=== PATIENT | male | born 1940 | race Caucasian/White ===

== ENCOUNTER 2020-09-30 09:54 | Observation (INO) ==
[2020-09-30 10:56] LABS: Basophils % 0.4 % (0.0-0.8); Eosinophils % 0.6 % (0.00-10.9); Hematocrit 23.2 VOL% (42.0-52.0); Hemoglobin 7.3 GM/DL (14.0-18.0); Immature Granulocytes Absolute 0.05 #; Lymphocytes # 0.9 10*3/uL (1.4-4.0); Lymphocytes % 18.2 % (21.2-54.2); Mean Corpuscular HGB Conc 31.5 GM/DL (32-36); Mean Corpuscular Volume 95.5 FL (87-102); Mean Platelet Volume 10.2 FL (9.6-12.0); Monocytes % 6.6 % (1.7-12.7); Neutrophils % 73.2 % (38.7-73.9); Platelet Count 224 T/CUMM (130-400); Red Blood Count 2.43 MC/CUMM (3.8-5.5); Red Cell Distribution Width 15.8 % (9.3-17.3)
[2020-09-30 11:31] LABS: Bilirubin,Total 0.4 MG/DL (0.2-1.0); Calcium 7.2 MG/DL (8.5-10.1); Osmolality,Calculated 300.5 MOS/KG (273-304); Potassium 5.3 MMOL/L (3.5-5.1); Total Protein 6.6 G/DL (6.4-8.3)
[2020-09-30] MEDS ORDERED: ONDANSETRON 4 MG/2 ML VIAL IV PRN (13:04)
[2020-09-30] MEDS ORDERED: DEXTROSE 50% 25 GM/50 ML VIAL IV PRN (13:04)
[2020-09-30] MEDS ORDERED: GLUCAGON 1 MG VIAL IM PRN (13:04)
[2020-09-30] MEDS ORDERED: LEVOFLOXACIN INJ 750 MG in PREMIX 1 EACH IV ONE ×2 (14:00→20:00)
[2020-09-30] MEDS: DEXAMETHASONE 4 MG/1 ML VIAL IV SCH (14:50)
[2020-09-30 17:55] LABS: Hepatitis B Core IgM Quant 0.07 Index; Hepatitis B Surface Ag Quant < 0.10 Index; Hepatitis B Surface Ag Result Negative (Negative); Hepatitis C Virus Ab Quant 0.04 Index; Hepatitis C Virus Ab Result Negative (Negative)
[2020-09-30] MEDS: ACETAMINOPHEN 325 MG TABLET PO PRN (21:08)
[2020-09-30] MEDS: HEPARIN 5,000 UNIT/1 ML VIAL SUBCUT SCH (21:08)
[2020-10-01 05:47] LABS: Albumin 2.5 G/DL (3.4-5.0); Bilirubin,Total 0.7 MG/DL (0.2-1.0); Ferritin 115.3 ng/ml (26-388); Potassium 4.1 MMOL/L (3.5-5.1); Total Protein 5.9 G/DL (6.4-8.3)
[2020-10-01 06:23] LABS: Hematocrit 25.1 VOL% (42.0-52.0); Hemoglobin 7.9 GM/DL (14.0-18.0); Immature Granulocytes % 0.7 %; Immature Granulocytes Absolute 0.03 #; Lymphocytes # 0.6 10*3/uL (1.4-4.0); Lymphocytes % 12.9 % (21.2-54.2); Mean Corpuscular HGB Conc 31.5 GM/DL (32-36); Mean Corpuscular Volume 95.1 FL (87-102); Monocytes % 5.2 % (1.7-12.7); Neutrophils % 81.2 % (38.7-73.9); Platelet Count 215 T/CUMM (130-400); Red Blood Count 2.64 MC/CUMM (3.8-5.5); Red Cell Distribution Width 15.1 % (9.3-17.3); White Blood Count 4.3 T/CUMM (4-12)
[2020-10-01] MEDS: DEXAMETHASONE 4 MG/1 ML VIAL IV SCH (08:15)
[2020-10-01] MEDS: HEPARIN 5,000 UNIT/1 ML VIAL SUBCUT SCH ×2 (08:15→20:53)
[2020-10-01 09:30] LABS: Albumin 2.7 G/DL (3.4-5.0); Bilirubin,Total 0.8 MG/DL (0.2-1.0); Osmolality,Calculated 284.8 MOS/KG (273-304); Total Protein 7.2 G/DL (6.4-8.3)
[2020-10-01] MEDS: PREGABALIN 100 MG CAPSULE PO SCH (20:52)
[2020-10-01] MEDS: ACETAMINOPHEN 325 MG TABLET PO PRN (20:53)
[2020-10-02 05:56] LABS: Basophils % 0.2 % (0.0-0.8); Hemoglobin 8.3 GM/DL (14.0-18.0); Immature Granulocytes % 1.1 %; Immature Granulocytes Absolute 0.06 #; Lymphocytes # 0.9 10*3/uL (1.4-4.0); Mean Corpuscular HGB Conc 31.9 GM/DL (32-36); Mean Corpuscular Volume 94.2 FL (87-102); Mean Platelet Volume 9.9 FL (9.6-12.0); Monocytes % 8.6 % (1.7-12.7); Neutrophils % 74.1 % (38.7-73.9); Platelet Count 236 T/CUMM (130-400); Red Blood Count 2.76 MC/CUMM (3.8-5.5); Red Cell Distribution Width 15.3 % (9.3-17.3); White Blood Count 5.3 T/CUMM (4-12)
[2020-10-02 06:27] LABS: Albumin 2.6 G/DL (3.4-5.0); Bilirubin,Total 0.4 MG/DL (0.2-1.0); Calcium 8.2 MG/DL (8.5-10.1); Ferritin 3551.6 ng/ml (26-388); Osmolality,Calculated 295.5 MOS/KG (273-304); Potassium 5.7 MMOL/L (3.5-5.1); Total Protein 7.2 G/DL (6.4-8.3)
[2020-10-02] MEDS: SEVELAMER CARBONATE 800 MG TABLET PO SCH ×2 (08:13→12:57)
[2020-10-02] MEDS: DEXAMETHASONE 4 MG/1 ML VIAL IV SCH (08:13)
[2020-10-02] MEDS: HEPARIN 5,000 UNIT/1 ML VIAL SUBCUT SCH (08:13)
[2020-10-02] MEDS: PREGABALIN 100 MG CAPSULE PO SCH (08:14)
[2020-10-02 08:46] VITALS: BP 147/64
[2020-10-02] MEDS ORDERED: LEVOFLOXACIN INJ 500 MG in PREMIX 1 EACH IV SCH (21:00)
== END 2020-10-02 14:02 | disposition home or self-care (01) ==
LOC: N.ED 09:54 → N.EDINP 09:54 → SUATTDRO 12:03 → N.2E 13:10
PROVIDERS: ADMIT Internal Medicine; ATTEND Internal Medicine

== ENCOUNTER 2020-12-19 14:53 | Inpatient (IN) ==
[2020-12-19] MEDS ORDERED: ALBUTEROL/IPRATROPIUM 3 ML NEB RESP TX STA (16:07)
[2020-12-19 16:49] LABS: Basophils % 0.1 % (0.0-0.8); Hematocrit 31.4 VOL% (42.0-52.0); Hemoglobin 9.4 GM/DL (14.0-18.0); Immature Granulocytes % 0.5 %; Immature Granulocytes Absolute 0.07 #; Lymphocytes # 0.8 10*3/uL (1.4-4.0); Lymphocytes % 5.8 % (21.2-54.2); Mean Corpuscular HGB Conc 29.9 GM/DL (32-36); Mean Platelet Volume 11.2 FL (9.6-12.0); Monocytes % 4.4 % (1.7-12.7); Neutrophils % 89.2 % (38.7-73.9); Platelet Count 194 T/CUMM (130-400); Red Blood Count 3.27 MC/CUMM (3.8-5.5); Red Cell Distribution Width 18.9 % (9.3-17.3); White Blood Count 13.3 T/CUMM (4-12)
[2020-12-19 17:10] LABS: Alanine Aminotransferase 24 U/L (16-61); Albumin 2.7 G/DL (3.4-5.0); Alkaline Phosphatase 115 U/L (45-117); Aspartate Amino Transferase 11 U/L (0-37); Blood Urea Nitrogen 44 MG/DL (7-18); Calcium 9.7 MG/DL (8.5-10.1); Carbon Dioxide 34 MMOL/L (21-32); Estimated Glom Filtration Rate 9 ML/MIN; Glucose 133 MG/DL (74-106); Osmolality,Calculated 295.1 MOS/KG (273-304); Potassium 3.7 MMOL/L (3.5-5.1); Sodium 142 MMOL/L (136-145); Total Protein 6.6 G/DL (6.4-8.2)
[2020-12-19 17:11] LABS: Troponin I 0.279 NG/ML (0.00-0.045)
[2020-12-19] MEDS ORDERED: LEVOFLOXACIN INJ 500 MG in PREMIX 1 EACH IV STA (17:14)
[2020-12-19] MEDS ORDERED: GLUCAGON 1 MG VIAL IM PRN (18:38)
[2020-12-19] MEDS ORDERED: LACTULOSE 20 GM/30 ML UDCUP PO PRN (18:38)
[2020-12-19] MEDS ORDERED: ONDANSETRON 4 MG/2 ML VIAL IV PRN (18:38)
[2020-12-19] MEDS ORDERED: DEXTROSE 50% 25 GM/50 ML VIAL IV PRN (18:38)
[2020-12-19] MEDS: ALBUTEROL/IPRATROPIUM 3 ML NEB RESP TX SCH (18:55)
[2020-12-19] MEDS ORDERED: ASPIRIN CHEW 81 MG TABLET PO STA (19:10)
[2020-12-19] MEDS: ZALEPLON 5 MG CAPSULE PO PRN (22:11)
[2020-12-19] MEDS: ENOXAPARIN 30 MG/0.3 ML SYRINGE SUBCUT SCH (22:11)
[2020-12-20] MEDS: ALBUTEROL/IPRATROPIUM 3 ML NEB RESP TX SCH ×4 (00:21→19:15)
[2020-12-20] MEDS: CLORAZEPATE 3.75 MG TABLET PO PRN (01:07)
[2020-12-20 03:53] LABS: Basophils % 0.1 % (0.0-0.8); Eosinophils % 0.1 % (0.00-10.9); Hematocrit 31.5 VOL% (42.0-52.0); Hemoglobin 9.6 GM/DL (14.0-18.0); Immature Granulocytes % 0.5 %; Immature Granulocytes Absolute 0.05 #; Lymphocytes # 0.6 10*3/uL (1.4-4.0); Lymphocytes % 5.9 % (21.2-54.2); Mean Corpuscular HGB Conc 30.5 GM/DL (32-36); Mean Corpuscular Volume 92.9 FL (87-102); Mean Platelet Volume 11.1 FL (9.6-12.0); Monocytes % 5.9 % (1.7-12.7); Neutrophils % 87.5 % (38.7-73.9); Platelet Count 176 T/CUMM (130-400); Red Blood Count 3.39 MC/CUMM (3.8-5.5); Red Cell Distribution Width 18.8 % (9.3-17.3); White Blood Count 10.8 T/CUMM (4-12)
[2020-12-20 04:22] LABS: Alanine Aminotransferase 23 U/L (16-61); Albumin 2.6 G/DL (3.4-5.0); Alkaline Phosphatase 106 U/L (45-117); Aspartate Amino Transferase 12 U/L (0-37); Bilirubin,Total < 0.39 MG/DL (0.2-1.0); Blood Urea Nitrogen 51 MG/DL (7-18); Calcium 9.6 MG/DL (8.5-10.1); Carbon Dioxide 35 MMOL/L (21-32); Estimated Glom Filtration Rate 9 ML/MIN; Glucose 88 MG/DL (74-106); Osmolality,Calculated 295.1 MOS/KG (273-304); Potassium 3.9 MMOL/L (3.5-5.1); Sodium 142 MMOL/L (136-145); Total Protein 6.4 G/DL (6.4-8.2)
[2020-12-20] MEDS: ASPIRIN CHEW 81 MG TABLET PO SCH (10:52)
[2020-12-20] MEDS: predniSONE 20 MG TABLET PO SCH (11:36)
[2020-12-20] MEDS: SEVELAMER CARBONATE 800 MG TABLET PO SCH ×2 (12:38→17:30)
[2020-12-20] MEDS: PREGABALIN 100 MG CAPSULE PO SCH ×2 (17:00→21:16)
[2020-12-20] MEDS: ENOXAPARIN 30 MG/0.3 ML SYRINGE SUBCUT SCH (21:16)
[2020-12-20] MEDS ORDERED: MORPHINE 4 MG/1 ML VIAL IV ONE (22:35)
[2020-12-20] MEDS: METOPROLOL TARTRATE 25 MG TABLET PO SCH (23:24)
[2020-12-21] MEDS: CLORAZEPATE 3.75 MG TABLET PO PRN (00:12)
[2020-12-21] MEDS: ZALEPLON 5 MG CAPSULE PO PRN (00:12)
[2020-12-21] MEDS: ALBUTEROL/IPRATROPIUM 3 ML NEB RESP TX SCH ×4 (00:53→19:59)
[2020-12-21] MEDS ORDERED: DILTIAZEM 50 MG/10 ML VIAL IV ONE (01:45)
[2020-12-21] MEDS ORDERED: MORPHINE 4 MG/1 ML VIAL IV PRN (02:23)
[2020-12-21 07:01] LABS: Basophils % 0.3 % (0.0-0.8); Eosinophils # 0.1 10*3/uL (0.0-0.87); Eosinophils % 0.5 % (0.00-10.9); Immature Granulocytes % 0.6 %; Immature Granulocytes Absolute 0.07 #; Lymphocytes # 0.7 10*3/uL (1.4-4.0); Lymphocytes % 6.5 % (21.2-54.2); Mean Corpuscular Volume 96.2 FL (87-102); Monocytes % 6.4 % (1.7-12.7); Neutrophils % 85.7 % (38.7-73.9); Platelet Count 192 T/CUMM (130-400); Red Blood Count 3.12 MC/CUMM (3.8-5.5); Red Cell Distribution Width 18.9 % (9.3-17.3); White Blood Count 10.9 T/CUMM (4-12)
[2020-12-21 07:15] LABS: Albumin 2.4 G/DL (3.4-5.0); Bilirubin,Total 0.9 MG/DL (0.2-1.0); Calcium 9.2 MG/DL (8.5-10.1); Osmolality,Calculated 282.5 MOS/KG (273-304); Potassium 4.3 MMOL/L (3.5-5.1)
[2020-12-21] MEDS ORDERED: amLODIPine 5 MG TABLET PO SCH (09:00)
[2020-12-21] MEDS: ASPIRIN CHEW 81 MG TABLET PO SCH (09:43)
[2020-12-21] MEDS: METOPROLOL TARTRATE 25 MG TABLET PO SCH ×3 (09:43→20:52)
[2020-12-21] MEDS: SEVELAMER CARBONATE 800 MG TABLET PO SCH ×3 (09:43→17:19)
[2020-12-21] MEDS: PREGABALIN 100 MG CAPSULE PO SCH ×3 (09:43→20:52)
[2020-12-21] MEDS: predniSONE 20 MG TABLET PO SCH (09:44)
[2020-12-21] MEDS ORDERED: METOPROLOL TARTRATE 5 MG/5 ML VIAL IV ONE (12:00)
[2020-12-21] MEDS: ASCORBIC ACID 500 MG TABLET PO SCH ×2 (12:45→20:53)
[2020-12-21] MEDS: APIXABAN 5 MG TABLET PO SCH (20:52)
[2020-12-21] MEDS ORDERED: carvediloL 6.25 MG TABLET PO SCH (21:00)
[2020-12-21] MEDS ORDERED: LEVOFLOXACIN INJ 250 MG in PREMIX 1 EACH IV SCH (21:00)
[2020-12-21] MEDS ORDERED: DILTIAZEM CD 120 MG CAPSULE PO SCH (21:00)
[2020-12-22] MEDS: ALBUTEROL/IPRATROPIUM 3 ML NEB RESP TX SCH ×2 (01:21→07:10)
[2020-12-22 05:15] LABS: Basophils % 0.2 % (0.0-0.8); Eosinophils % 0.3 % (0.00-10.9); Hematocrit 31.4 VOL% (42.0-52.0); Hemoglobin 9.4 GM/DL (14.0-18.0); Immature Granulocytes % 0.6 %; Immature Granulocytes Absolute 0.06 #; Lymphocytes # 0.7 10*3/uL (1.4-4.0); Lymphocytes % 6.9 % (21.2-54.2); Mean Corpuscular HGB Conc 29.9 GM/DL (32-36); Mean Corpuscular Volume 94.9 FL (87-102); Mean Platelet Volume 11.1 FL (9.6-12.0); Monocytes % 6.7 % (1.7-12.7); Neutrophils % 85.3 % (38.7-73.9); Platelet Count 206 T/CUMM (130-400); Red Blood Count 3.31 MC/CUMM (3.8-5.5); Red Cell Distribution Width 18.4 % (9.3-17.3); White Blood Count 10.4 T/CUMM (4-12)
[2020-12-22 05:43] LABS: Albumin 2.6 G/DL (3.4-5.0); Bilirubin,Total 0.5 MG/DL (0.2-1.0); Osmolality,Calculated 273.1 MOS/KG (273-304); Potassium 4.1 MMOL/L (3.5-5.1); Total Protein 6.5 G/DL (6.4-8.2)
[2020-12-22] MEDS: SEVELAMER CARBONATE 800 MG TABLET PO SCH (10:15)
[2020-12-22] MEDS: APIXABAN 5 MG TABLET PO SCH (10:16)
[2020-12-22] MEDS: ASCORBIC ACID 500 MG TABLET PO SCH (10:16)
[2020-12-22] MEDS: ASPIRIN CHEW 81 MG TABLET PO SCH (10:16)
[2020-12-22] MEDS: predniSONE 20 MG TABLET PO SCH (10:16)
[2020-12-22] MEDS: METOPROLOL TARTRATE 25 MG TABLET PO SCH (10:16)
[2020-12-22] MEDS: PREGABALIN 100 MG CAPSULE PO SCH (10:16)
[2020-12-22 10:54] VITALS: BP 108/54
== END 2020-12-22 11:54 | disposition home or self-care (01) | DRG 193 ==
LOC: EDBD → EDUNIT# → N.ED 14:53 → SUATTDRO 18:38 → N.EDINP 18:38 → N.TELEN 21:03
PROVIDERS: ADMIT Family Medicine; ATTEND Internal Medicine

== ENCOUNTER 2021-01-03 17:02 | Inpatient (IN) ==
[2021-01-03] MEDS ORDERED: HYDROmorphone 2 MG/1 ML VIAL IV STA ×2 (17:42→19:16)
[2021-01-03] MEDS ORDERED: ONDANSETRON 4 MG/2 ML VIAL IV STA (17:42)
[2021-01-03] MEDS ORDERED: PANTOPRAZOLE 40 MG VIAL IV STA (17:42)
[2021-01-03] MEDS ORDERED: SODIUM CHLORIDE 0.9% 500 ML IV STA ×2 (17:42→19:16)
[2021-01-03 17:50] LABS: Basophils % 0.2 % (0.0-0.8); Eosinophils % 0.1 % (0.00-10.9); Hematocrit 37.1 VOL% (42.0-52.0); Hemoglobin 11.2 GM/DL (14.0-18.0); Immature Granulocytes % 0.9 %; Immature Granulocytes Absolute 0.12 #; Lymphocytes % 7.9 % (21.2-54.2); Mean Corpuscular HGB Conc 30.2 GM/DL (32-36); Mean Corpuscular Volume 93.7 FL (87-102); Mean Platelet Volume 10.9 FL (9.6-12.0); Monocytes % 4.5 % (1.7-12.7); Neutrophils % 86.4 % (38.7-73.9); Platelet Count 273 T/CUMM (130-400); Red Blood Count 3.96 MC/CUMM (3.8-5.5); Red Cell Distribution Width 17.5 % (9.3-17.3); White Blood Count 12.8 T/CUMM (4-12)
[2021-01-03] MEDS ORDERED: ONDANSETRON 4 MG/2 ML VIAL IV ONE (19:16)
[2021-01-03] MEDS ORDERED: PIPERACILLIN/TAZOBACTAM 3,375 MG in SODIUM CHLORIDE 0.9% 100 ML IV STA ×2 (19:17→19:20)
[2021-01-03 19:46] LABS: Bilirubin,Total 0.5 MG/DL (0.2-1.0); Calcium 10.2 MG/DL (8.5-10.1); Osmolality,Calculated 293.5 MOS/KG (273-304); Potassium 3.3 MMOL/L (3.5-5.1); Total Protein 6.8 G/DL (6.4-8.2)
[2021-01-03] MEDS ORDERED: VANCOMYCIN INJ 1,000 MG in SODIUM CHLORIDE 0.9% 250 ML IV ONE (20:16)
[2021-01-03] MEDS ORDERED: ROCURONIUM 50 MG/5 ML VIAL IV ONE (20:34)
[2021-01-03] MEDS ORDERED: fentaNYL 100 MCG/2 ML VIAL ONE (20:34)
[2021-01-03] MEDS ORDERED: ETOMIDATE 40 MG/20 ML VIAL IV ONE (20:34)
[2021-01-03] MEDS ORDERED: MIDAZOLAM 2 MG/2 ML VIAL ONE (20:34)
[2021-01-03] MEDS ORDERED: LIDOCAINE 2% 5 ML VIAL ONE (20:34)
[2021-01-03] MEDS ORDERED: SUCCINYLCHOLINE 200 MG/10 ML VIAL ONE (20:35)
[2021-01-03] MEDS ORDERED: HEPARIN/NACL 0.9% 2 UNITS/ML 500 ML IV ONE (20:35)
[2021-01-03] MEDS ORDERED: ALBUMIN 5% 12.5 GM/250 ML VIAL IV ONE (20:36)
[2021-01-03] MEDS ORDERED: PHENYLEPHRINE DRIP 20 MG/250 ML PREMIX IV ONE (20:36)
[2021-01-03 20:57] LABS: ABG Base Excess 3.5 MMOL/L (-2.5-2.5); ABG HCO3 27.5 MMOL/L (20-26); ABG Oxygen Saturation 95.3 % (95-100); ABG PCO2 46.4 MM HG (35-48); ABG PH 7.402 (7.35-7.45); ABG PO2 84.8 MM HG (80-95); ABG TCO2 26.2 MMOL/L (23-27)
[2021-01-03] MEDS ORDERED: ONDANSETRON 4 MG/2 ML VIAL IV PRN (21:13)
[2021-01-03] MEDS ORDERED: ACETAMINOPHEN 325 MG TABLET PO PRN (21:13)
[2021-01-03] MEDS ORDERED: PHENYLEPHRINE 1 MG/10 ML SYRINGE IV ONE (21:26)
[2021-01-03] MEDS ORDERED: VANCOMYCIN 1,000 MG VIAL ONE (21:29)
[2021-01-03] MEDS ORDERED: SEVOFLURANE 1 UNIT/15 MINUTE INH ONE (21:54)
[2021-01-03] MEDS ORDERED: SODIUM CHLORIDE 0.9% 1,000 ML IV ONE (21:55)
[2021-01-03] MEDS ORDERED: SODIUM CHLORIDE 0.9% 250 ML IV ONE (21:55)
[2021-01-03] MEDS ORDERED: DILTIAZEM 50 MG/10 ML VIAL IV ONE (21:59)
[2021-01-03] MEDS ORDERED: PHENYLEPHRINE DRIP 40 MG/250 ML PREMIX IV ONE (22:28)
[2021-01-03] MEDS ORDERED: MIDAZOLAM 100 MG in SODIUM CHLORIDE 0.9% 80 ML IV PRN (22:30)
[2021-01-03] MEDS: LACTATED RINGERS 1,000 ML IV SCH (22:55)
[2021-01-03] MEDS ORDERED: EPINEPHrine 1 MG/ML VIAL ONE (23:14)
[2021-01-04] MEDS: PHENYLEPHRINE DRIP 40 MG/250 ML PREMIX IV PRN ×3 (04:20→18:16)
[2021-01-04] MEDS: LACTATED RINGERS 1,000 ML IV SCH ×3 (06:55→22:22)
[2021-01-04 07:38] LABS: ABG Base Excess 1.1 MMOL/L (-2.5-2.5); ABG HCO3 25.5 MMOL/L (20-26); ABG Oxygen Saturation 99.2 % (95-100); ABG PCO2 39.1 MM HG (35-48); ABG PH 7.423 (7.35-7.45); ABG TCO2 23.7 MMOL/L (23-27)
[2021-01-04 07:54] LABS: Basophils % 0.2 % (0.0-0.8); Eosinophils % 0.1 % (0.00-10.9); Hematocrit 26.5 VOL% (42.0-52.0); Immature Granulocytes % 0.6 %; Immature Granulocytes Absolute 0.06 #; Lymphocytes % 10.3 % (21.2-54.2); Mean Corpuscular HGB Conc 31.3 GM/DL (32-36); Mean Platelet Volume 11.2 FL (9.6-12.0); Monocytes % 6.4 % (1.7-12.7); NRBC # 0.02 10*3/uL; Neutrophils % 82.4 % (38.7-73.9); Platelet Count 256 T/CUMM (130-400); Red Cell Distribution Width 17.6 % (9.3-17.3); White Blood Count 9.5 T/CUMM (4-12)
[2021-01-04 07:56] LABS: Hemoglobin 8.3 GM/DL (14.0-18.0); Red Blood Count 2.88 MC/CUMM (3.8-5.5)
[2021-01-04 07:57] LABS: Albumin 2.2 G/DL (3.4-5.0); Bilirubin,Total 0.8 MG/DL (0.2-1.0); Calcium 8.5 MG/DL (8.5-10.1); Osmolality,Calculated 298.3 MOS/KG (273-304); Potassium 4.5 MMOL/L (3.5-5.1); Total Protein 4.9 G/DL (6.4-8.2)
[2021-01-04 08:13] LABS: Band Neutrophils 14 % (0-10); Hypochromasia 1+; Lymphocytes 12 % (20-55); Platelet Estimate Adequate; Segmented Neutrophils 70 % (50-85); Total Cells Counted 100
[2021-01-04 08:14] LABS: Microcytosis Slight
[2021-01-04] MEDS ORDERED: SODIUM CHLORIDE 0.9% 1,000 ML IV PRN (08:15)
[2021-01-04] MEDS: PANTOPRAZOLE 40 MG VIAL IV SCH (08:46)
[2021-01-04] MEDS: PIPERACILLIN/TAZOBACTAM 3,375 MG in SODIUM CHLORIDE 0.9% 100 ML IV SCH ×2 (08:46→21:45)
[2021-01-04] MEDS: SKIN HEALING OINT (AQUAPHOR) 50 GM TUBE TOP SCH ×2 (11:58→21:23)
[2021-01-04] MEDS: HEPARIN 5,000 UNIT/1 ML VIAL SUBCUT SCH ×2 (15:27→21:44)
[2021-01-04] MEDS: methylPREDNISolone SOD SUC 40 MG/1 ML VIAL IV SCH ×2 (15:28→22:57)
[2021-01-04 16:55] LABS: Hematocrit 33.6 VOL% (42.0-52.0)
[2021-01-04 17:03] LABS: Hemoglobin 10.2 GM/DL (14.0-18.0)
[2021-01-04] MEDS: HYDROmorphone 2 MG/1 ML VIAL IV PRN (21:43)
[2021-01-04] MEDS: METOPROLOL TARTRATE 5 MG/5 ML VIAL IV PRN (22:53)
[2021-01-05 04:15] LABS: ABG Base Excess 0.1 MMOL/L (-2.5-2.5); ABG HCO3 24.6 MMOL/L (20-26); ABG Oxygen Saturation 99.1 % (95-100); ABG PCO2 40.5 MM HG (35-48); ABG PH 7.397 (7.35-7.45); ABG TCO2 22.5 MMOL/L (23-27)
[2021-01-05 04:23] LABS: Basophils % 0.2 % (0.0-0.8); Hematocrit 28.3 VOL% (42.0-52.0); Immature Granulocytes % 0.3 %; Immature Granulocytes Absolute 0.04 #; Lymphocytes # 0.6 10*3/uL (1.4-4.0); Lymphocytes % 4.6 % (21.2-54.2); Mean Corpuscular HGB Conc 31.8 GM/DL (32-36); Mean Corpuscular Volume 88.7 FL (87-102); Mean Platelet Volume 11.1 FL (9.6-12.0); Monocytes % 2.9 % (1.7-12.7); Platelet Count 266 T/CUMM (130-400); Red Blood Count 3.19 MC/CUMM (3.8-5.5); Red Cell Distribution Width 20.1 % (9.3-17.3); White Blood Count 12.8 T/CUMM (4-12)
[2021-01-05 04:43] LABS: Band Neutrophils 13 % (0-10); Hypochromasia 1+; Lymphocytes 4 % (20-55); Metamyelocytes 3 %; Nucleated Red Blood Cells 1 (0-5); Segmented Neutrophils 78 % (50-85); Total Cells Counted 100
[2021-01-05 04:44] LABS: Anisocytosis 1+; Microcytosis 1+; Polychromasia Slight
[2021-01-05 04:45] LABS: Osmolality,Calculated 284.5 MOS/KG (273-304); Potassium 4.4 MMOL/L (3.5-5.1)
[2021-01-05] MEDS: PHENYLEPHRINE DRIP 40 MG/250 ML PREMIX IV PRN ×2 (05:05→20:33)
[2021-01-05] MEDS: HEPARIN 5,000 UNIT/1 ML VIAL SUBCUT SCH ×3 (05:25→20:49)
[2021-01-05] MEDS: LACTATED RINGERS 1,000 ML IV SCH (05:26)
[2021-01-05] MEDS: methylPREDNISolone SOD SUC 40 MG/1 ML VIAL IV SCH ×3 (06:31→22:27)
[2021-01-05] MEDS ORDERED: MAGNESIUM SULF RIDER 2 GM in PREMIX 1 EACH IV ONE (08:00)
[2021-01-05] MEDS: ASPIRIN 300 MG SUPP RECTAL SCH (08:14)
[2021-01-05] MEDS: PANTOPRAZOLE 40 MG VIAL IV SCH (08:14)
[2021-01-05] MEDS: PIPERACILLIN/TAZOBACTAM 3,375 MG in SODIUM CHLORIDE 0.9% 100 ML IV SCH ×2 (08:16→20:49)
[2021-01-05] MEDS: SKIN HEALING OINT (AQUAPHOR) 50 GM TUBE TOP SCH ×2 (08:17→22:29)
[2021-01-05] MEDS: HYDROmorphone 2 MG/1 ML VIAL IV PRN ×2 (11:36→19:12)
[2021-01-05] MEDS: DEXTROSE 5% NACL 0.9% 1,000 ML IV SCH (12:01)
[2021-01-06] MEDS: HYDROmorphone 2 MG/1 ML VIAL IV PRN ×6 (00:23→23:18)
[2021-01-06] MEDS: DEXTROSE 5% NACL 0.9% 1,000 ML IV SCH ×2 (00:27→13:26)
[2021-01-06 04:26] LABS: ABG HCO3 24.4 MMOL/L (20-26); ABG Oxygen Saturation 99.2 % (95-100); ABG PCO2 35.6 MM HG (35-48); ABG PH 7.436 (7.35-7.45); ABG TCO2 22.3 MMOL/L (23-27)
[2021-01-06 04:34] LABS: Basophils % 0.1 % (0.0-0.8); Immature Granulocytes % 0.4 %; Immature Granulocytes Absolute 0.04 #; Lymphocytes # 0.4 10*3/uL (1.4-4.0); Lymphocytes % 4.4 % (21.2-54.2); Mean Corpuscular HGB Conc 32.1 GM/DL (32-36); Mean Corpuscular Volume 87.5 FL (87-102); Monocytes % 4.4 % (1.7-12.7); Neutrophils % 90.7 % (38.7-73.9); Platelet Count 223 T/CUMM (130-400); Red Cell Distribution Width 20.1 % (9.3-17.3); White Blood Count 9.4 T/CUMM (4-12)
[2021-01-06 04:53] LABS: Calcium 9.7 MG/DL (8.5-10.1); Osmolality,Calculated 296.4 MOS/KG (273-304); Potassium 4.7 MMOL/L (3.5-5.1)
[2021-01-06 04:55] LABS: Band Neutrophils 1 % (0-10); Lymphocytes 5 % (20-55); Segmented Neutrophils 92 % (50-85); Total Cells Counted 100
[2021-01-06 04:56] LABS: Hypochromasia 1+; Microcytosis 1+; Target Cells Slight
[2021-01-06] MEDS: HEPARIN 5,000 UNIT/1 ML VIAL SUBCUT SCH (06:01)
[2021-01-06] MEDS: methylPREDNISolone SOD SUC 40 MG/1 ML VIAL IV SCH ×3 (06:01→23:08)
[2021-01-06 07:48] LABS: INR 1.2; PT Patient Result 12.3 SECS (9.8-11.9)
[2021-01-06 07:57] LABS: Partial Thromboplastin Time 41.9 SECS (23.9-33.8)
[2021-01-06] MEDS: PANTOPRAZOLE 40 MG VIAL IV SCH (08:22)
[2021-01-06] MEDS: PIPERACILLIN/TAZOBACTAM 3,375 MG in SODIUM CHLORIDE 0.9% 100 ML IV SCH ×2 (08:23→21:17)
[2021-01-06] MEDS: ASPIRIN 300 MG SUPP RECTAL SCH (08:24)
[2021-01-06] MEDS: HEPARIN DRIP 25,000 UNITS/500 ML PREMIX IV SCH (08:26)
[2021-01-06] MEDS: SKIN HEALING OINT (AQUAPHOR) 50 GM TUBE TOP SCH ×2 (08:31→23:16)
[2021-01-06] MEDS: PHENYLEPHRINE DRIP 40 MG/250 ML PREMIX IV PRN (11:15)
[2021-01-06 14:12] LABS: INR 1.1; Partial Thromboplastin Time 76.1 SECS (23.9-33.8)
[2021-01-06 20:56] LABS: INR 1.2; PT Patient Result 12.3 SECS (9.8-11.9); Partial Thromboplastin Time 66.9 SECS (23.9-33.8)
[2021-01-07] MEDS: DEXTROSE 5% NACL 0.9% 1,000 ML IV SCH ×2 (05:04→20:50)
[2021-01-07 05:07] LABS: Hematocrit 26.4 VOL% (42.0-52.0); Hemoglobin 7.9 GM/DL (14.0-18.0); Immature Granulocytes % 0.6 %; Immature Granulocytes Absolute 0.04 #; Lymphocytes # 0.4 10*3/uL (1.4-4.0); Mean Corpuscular HGB Conc 29.9 GM/DL (32-36); Mean Corpuscular Volume 90.7 FL (87-102); Mean Platelet Volume 11.2 FL (9.6-12.0); Monocytes % 3.9 % (1.7-12.7); Neutrophils % 90.5 % (38.7-73.9); Platelet Count 204 T/CUMM (130-400); Red Blood Count 2.91 MC/CUMM (3.8-5.5); Red Cell Distribution Width 20.2 % (9.3-17.3); White Blood Count 7.2 T/CUMM (4-12)
[2021-01-07 05:29] LABS: Hypochromasia 1+; Microcytosis 1+
[2021-01-07 05:30] LABS: Platelet Estimate Normal
[2021-01-07 05:59] LABS: Calcium 10.3 MG/DL (8.5-10.1); Osmolality,Calculated 286.7 MOS/KG (273-304); Potassium 3.9 MMOL/L (3.5-5.1)
[2021-01-07] MEDS: methylPREDNISolone SOD SUC 40 MG/1 ML VIAL IV SCH ×3 (06:22→23:16)
[2021-01-07 06:28] LABS: ABG PH 7.442 (7.35-7.45)
[2021-01-07 06:29] LABS: ABG Base Excess 0.9 MMOL/L (-2.5-2.5); ABG HCO3 25.2 MMOL/L (20-26); ABG PCO2 36.5 MM HG (35-48); ABG TCO2 36.5 MMOL/L (23-27)
[2021-01-07 06:30] LABS: ABG Oxygen Saturation 10.7 % (95-100)
[2021-01-07 06:54] LABS: INR 1.1; Partial Thromboplastin Time 58.3 SECS (23.9-33.8)
[2021-01-07] MEDS: METOPROLOL TARTRATE 5 MG/5 ML VIAL IV PRN (07:21)
[2021-01-07] MEDS: ASPIRIN 300 MG SUPP RECTAL SCH (09:36)
[2021-01-07] MEDS: PANTOPRAZOLE 40 MG VIAL IV SCH (09:50)
[2021-01-07] MEDS: PIPERACILLIN/TAZOBACTAM 3,375 MG in SODIUM CHLORIDE 0.9% 100 ML IV SCH ×2 (09:52→20:26)
[2021-01-07] MEDS: SKIN HEALING OINT (AQUAPHOR) 50 GM TUBE TOP SCH ×2 (09:53→20:51)
[2021-01-07] MEDS: HEPARIN DRIP 25,000 UNITS/500 ML PREMIX IV SCH (09:53)
[2021-01-07] MEDS: DILTIAZEM INJ 100 MG in SODIUM CHLORIDE 0.9% 100 ML IV SCH ×2 (10:03→21:02)
[2021-01-07] MEDS: DILTIAZEM CD 120 MG CAPSULE PO SCH (20:26)
[2021-01-07] MEDS: METOPROLOL TARTRATE 25 MG TABLET PO SCH (20:26)
[2021-01-07] MEDS: HYDROmorphone 2 MG/1 ML VIAL IV PRN (21:49)
[2021-01-08] MEDS: HYDROmorphone 2 MG/1 ML VIAL IV PRN (05:14)
[2021-01-08] MEDS: DEXTROSE 5% NACL 0.9% 1,000 ML IV SCH (05:29)
[2021-01-08 05:38] LABS: Basophils % 0.2 % (0.0-0.8); Hematocrit 28.6 VOL% (42.0-52.0); Hemoglobin 8.4 GM/DL (14.0-18.0); Immature Granulocytes % 1.4 %; Immature Granulocytes Absolute 0.18 #; Lymphocytes # 0.4 10*3/uL (1.4-4.0); Lymphocytes % 3.1 % (21.2-54.2); Mean Corpuscular HGB Conc 29.4 GM/DL (32-36); Mean Corpuscular Volume 94.4 FL (87-102); Mean Platelet Volume 11.2 FL (9.6-12.0); Monocytes % 5.8 % (1.7-12.7); Neutrophils % 89.5 % (38.7-73.9); Platelet Count 221 T/CUMM (130-400); Red Blood Count 3.03 MC/CUMM (3.8-5.5); Red Cell Distribution Width 19.5 % (9.3-17.3); White Blood Count 13.1 T/CUMM (4-12)
[2021-01-08 05:58] LABS: Calcium 10.8 MG/DL (8.5-10.1); Osmolality,Calculated 292.4 MOS/KG (273-304); Potassium 4.3 MMOL/L (3.5-5.1)
[2021-01-08 06:21] LABS: Segmented Neutrophils 94 % (50-85); Total Cells Counted 100
[2021-01-08 06:22] LABS: Ovalocytes Slight; Platelet Estimate Normal; Polychromasia Slight
[2021-01-08] MEDS: methylPREDNISolone SOD SUC 40 MG/1 ML VIAL IV SCH ×3 (06:24→22:16)
[2021-01-08 08:01] LABS: ABG Base Excess -2.2 MMOL/L (-2.5-2.5); ABG HCO3 22.5 MMOL/L (20-26); ABG PCO2 50.1 MM HG (35-48); ABG PH 7.296 (7.35-7.45); ABG PO2 95.6 MM HG (80-95); Allen Test Positive
[2021-01-08] MEDS: SKIN HEALING OINT (AQUAPHOR) 50 GM TUBE TOP SCH ×2 (08:29→21:20)
[2021-01-08] MEDS: ASPIRIN EC 81 MG TABLET PO SCH (08:30)
[2021-01-08] MEDS: METOPROLOL TARTRATE 25 MG TABLET PO SCH ×2 (08:31→20:31)
[2021-01-08] MEDS: CLOPIDOGREL 75 MG TABLET PO SCH (08:31)
[2021-01-08] MEDS: PANTOPRAZOLE 40 MG VIAL IV SCH (08:34)
[2021-01-08] MEDS: PIPERACILLIN/TAZOBACTAM 3,375 MG in SODIUM CHLORIDE 0.9% 100 ML IV SCH ×2 (08:43→20:31)
[2021-01-08] MEDS ORDERED: DILTIAZEM INJ 100 MG in SODIUM CHLORIDE 0.9% 100 ML IV PRN (08:56)
[2021-01-08 10:02] LABS: ABG Base Excess -3.3 MMOL/L (-2.5-2.5); ABG HCO3 21.6 MMOL/L (20-26); ABG Oxygen Saturation 93.5 % (95-100); ABG PCO2 52.2 MM HG (35-48); ABG PH 7.269 (7.35-7.45); ABG PO2 81.6 MM HG (80-95); ABG TCO2 22.5 MMOL/L (23-27)
[2021-01-08 12:10] LABS: ABG Base Excess -2.6 MMOL/L (-2.5-2.5); ABG HCO3 22.2 MMOL/L (20-26); ABG PCO2 44.4 MM HG (35-48); ABG PH 7.329 (7.35-7.45); ABG PO2 86.3 MM HG (80-95); ABG TCO2 21.5 MMOL/L (23-27); Allen Test Positive; Pt O2 Delivery Device BIPAP
[2021-01-08] MEDS: SEVELAMER CARBONATE 800 MG TABLET PO SCH (17:30)
[2021-01-08] MEDS: DILTIAZEM CD 120 MG CAPSULE PO SCH (20:31)
[2021-01-08] MEDS: busPIRone 5 MG TABLET PO SCH (20:31)
[2021-01-08] MEDS: PREGABALIN 100 MG CAPSULE PO SCH (20:32)
[2021-01-09 01:54] LABS: ABG HCO3 22.5 MMOL/L (20-26); ABG PCO2 54.3 MM HG (35-48); ABG PH 7.275 (7.35-7.45); ABG PO2 62.2 MM HG (80-95); ABG TCO2 23.7 MMOL/L (23-27)
[2021-01-09 05:16] LABS: ABG Base Excess -1.4 MMOL/L (-2.5-2.5); ABG HCO3 23.1 MMOL/L (20-26); ABG Oxygen Saturation 88.3 % (95-100); ABG PCO2 48.1 MM HG (35-48); ABG PH 7.321 (7.35-7.45); ABG PO2 64.7 MM HG (80-95); ABG TCO2 23.3 MMOL/L (23-27); Allen Test Positive; Pt O2 Delivery Device BIPAP
[2021-01-09] MEDS: methylPREDNISolone SOD SUC 40 MG/1 ML VIAL IV SCH ×3 (06:36→23:28)
[2021-01-09] MEDS: METOPROLOL TARTRATE 25 MG TABLET PO SCH ×2 (08:09→20:23)
[2021-01-09] MEDS: SEVELAMER CARBONATE 800 MG TABLET PO SCH ×3 (08:09→17:20)
[2021-01-09] MEDS: MULTIVITAMIN (BEROCCA) TABLET PO SCH (08:09)
[2021-01-09] MEDS: PREGABALIN 100 MG CAPSULE PO SCH ×3 (08:09→20:23)
[2021-01-09] MEDS: ASPIRIN EC 81 MG TABLET PO SCH (08:09)
[2021-01-09] MEDS: CLOPIDOGREL 75 MG TABLET PO SCH (08:09)
[2021-01-09] MEDS: busPIRone 5 MG TABLET PO SCH ×2 (08:09→20:23)
[2021-01-09] MEDS: PANTOPRAZOLE 40 MG VIAL IV SCH (08:10)
[2021-01-09] MEDS: SKIN HEALING OINT (AQUAPHOR) 50 GM TUBE TOP SCH ×2 (08:10→20:23)
[2021-01-09] MEDS: PIPERACILLIN/TAZOBACTAM 3,375 MG in SODIUM CHLORIDE 0.9% 100 ML IV SCH ×2 (08:29→21:24)
[2021-01-09 09:50] LABS: Basophils % 0.2 % (0.0-0.8); Eosinophils % 0.1 % (0.00-10.9); Hematocrit 27.3 VOL% (42.0-52.0); Hemoglobin 8.2 GM/DL (14.0-18.0); Immature Granulocytes % 1.7 %; Lymphocytes # 0.3 10*3/uL (1.4-4.0); Lymphocytes % 2.3 % (21.2-54.2); Mean Corpuscular Volume 93.2 FL (87-102); Mean Platelet Volume 11.2 FL (9.6-12.0); Monocytes % 5.2 % (1.7-12.7); NRBC # 0.02 10*3/uL; Neutrophils % 90.5 % (38.7-73.9); Platelet Count 227 T/CUMM (130-400); Red Blood Count 2.93 MC/CUMM (3.8-5.5); White Blood Count 11.5 T/CUMM (4-12)
[2021-01-09 10:09] LABS: Calcium 10.8 MG/DL (8.5-10.1); Osmolality,Calculated 294.3 MOS/KG (273-304); Potassium 4.5 MMOL/L (3.5-5.1)
[2021-01-09 10:11] LABS: Band Neutrophils 2 % (0-10); Lymphocytes 2 % (20-55); Platelet Estimate Normal; Segmented Neutrophils 92 % (50-85); Total Cells Counted 100
[2021-01-09] MEDS: DILTIAZEM CD 120 MG CAPSULE PO SCH (20:23)
[2021-01-09] MEDS: MORPHINE 4 MG/1 ML VIAL IV PRN (23:49)
[2021-01-10] MEDS: methylPREDNISolone SOD SUC 40 MG/1 ML VIAL IV SCH ×3 (06:28→17:34)
[2021-01-10 07:14] LABS: ABG Base Excess -5.6 MMOL/L (-2.5-2.5); ABG HCO3 23.7 MMOL/L (20-26); ABG Oxygen Saturation 85.9 % (95-100); ABG PO2 67.3 MM HG (80-95); ABG TCO2 25.8 MMOL/L (23-27)
[2021-01-10 07:16] LABS: ABG PCO2 70.1 MM HG (35-48); ABG PH 7.146 (7.35-7.45)
[2021-01-10] MEDS: PANTOPRAZOLE 40 MG VIAL IV SCH (08:30)
[2021-01-10 09:05] LABS: ABG Base Excess -5.6 MMOL/L (-2.5-2.5); ABG HCO3 22.2 MMOL/L (20-26); ABG Oxygen Saturation 95.1 % (95-100); ABG PCO2 56.9 MM HG (35-48); ABG PO2 95.8 MM HG (80-95); Allen Test Positive; Pt O2 Delivery Device BIPAP
[2021-01-10] MEDS: busPIRone 5 MG TABLET PO SCH ×2 (09:23→20:25)
[2021-01-10] MEDS: ASPIRIN EC 81 MG TABLET PO SCH (09:23)
[2021-01-10] MEDS: PREGABALIN 100 MG CAPSULE PO SCH ×3 (09:23→20:26)
[2021-01-10] MEDS: PIPERACILLIN/TAZOBACTAM 3,375 MG in SODIUM CHLORIDE 0.9% 100 ML IV SCH ×2 (09:23→20:26)
[2021-01-10] MEDS: METOPROLOL TARTRATE 25 MG TABLET PO SCH ×2 (09:23→20:25)
[2021-01-10] MEDS: SEVELAMER CARBONATE 800 MG TABLET PO SCH ×3 (09:23→17:36)
[2021-01-10] MEDS: MULTIVITAMIN (BEROCCA) TABLET PO SCH (09:23)
[2021-01-10] MEDS: CLOPIDOGREL 75 MG TABLET PO SCH (09:23)
[2021-01-10] MEDS: SKIN HEALING OINT (AQUAPHOR) 50 GM TUBE TOP SCH ×2 (09:47→20:25)
[2021-01-10] MEDS ORDERED: ALBUMIN 25% 25 GM/100 ML VIAL IV ONE (10:57)
[2021-01-10] MEDS: APIXABAN 5 MG TABLET PO SCH ×2 (12:30→20:26)
[2021-01-10] MEDS: ALBUTEROL/IPRATROPIUM 3 ML NEB RESP TX SCH ×2 (13:20→19:42)
[2021-01-10] MEDS: MORPHINE 4 MG/1 ML VIAL IV PRN ×2 (14:10→21:13)
[2021-01-10] MEDS: DILTIAZEM CD 120 MG CAPSULE PO SCH (20:26)
[2021-01-11] MEDS: ALBUTEROL/IPRATROPIUM 3 ML NEB RESP TX SCH ×4 (00:28→19:47)
[2021-01-11] MEDS: methylPREDNISolone SOD SUC 40 MG/1 ML VIAL IV SCH ×4 (00:57→17:50)
[2021-01-11] MEDS: MORPHINE 4 MG/1 ML VIAL IV PRN (03:20)
[2021-01-11 04:02] LABS: ABG Base Excess -3.2 MMOL/L (-2.5-2.5); ABG HCO3 24.2 MMOL/L (20-26); ABG PCO2 56.7 MM HG (35-48); ABG PH 7.248 (7.35-7.45); ABG PO2 83.1 MM HG (80-95); ABG TCO2 25.9 MMOL/L (23-27); Allen Test Positive; Pt O2 Delivery Device BIPAP
[2021-01-11 04:50] LABS: Basophils % 0.1 % (0.0-0.8); Hematocrit 26.7 VOL% (42.0-52.0); Hemoglobin 7.9 GM/DL (14.0-18.0); Immature Granulocytes % 0.9 %; Immature Granulocytes Absolute 0.06 #; Lymphocytes # 0.1 10*3/uL (1.4-4.0); Lymphocytes % 1.3 % (21.2-54.2); Mean Corpuscular HGB Conc 29.6 GM/DL (32-36); Mean Corpuscular Volume 94.3 FL (87-102); Mean Platelet Volume 10.3 FL (9.6-12.0); Monocytes % 5.5 % (1.7-12.7); NRBC # 0.02 10*3/uL; Neutrophils % 92.2 % (38.7-73.9); Platelet Count 216 T/CUMM (130-400); Red Blood Count 2.83 MC/CUMM (3.8-5.5); Red Cell Distribution Width 18.9 % (9.3-17.3); White Blood Count 6.8 T/CUMM (4-12)
[2021-01-11 05:07] LABS: Calcium 10.3 MG/DL (8.5-10.1); Osmolality,Calculated 294.4 MOS/KG (273-304); Potassium 4.6 MMOL/L (3.5-5.1)
[2021-01-11 05:08] LABS: Band Neutrophils 5 % (0-10); Lymphocytes 1 % (20-55); Segmented Neutrophils 91 % (50-85); Total Cells Counted 100
[2021-01-11 05:09] LABS: Anisocytosis 1+; Hypochromasia 1+; Microcytosis 1+; Polychromasia Slight
[2021-01-11 05:10] LABS: Platelet Estimate Normal
[2021-01-11] MEDS: PANTOPRAZOLE 40 MG VIAL IV SCH (08:00)
[2021-01-11] MEDS: SEVELAMER CARBONATE 800 MG TABLET PO SCH ×3 (08:04→17:06)
[2021-01-11] MEDS: SKIN HEALING OINT (AQUAPHOR) 50 GM TUBE TOP SCH ×2 (08:04→20:13)
[2021-01-11] MEDS: APIXABAN 5 MG TABLET PO SCH ×2 (08:05→20:13)
[2021-01-11] MEDS: MULTIVITAMIN (BEROCCA) TABLET PO SCH (08:05)
[2021-01-11] MEDS: ASPIRIN EC 81 MG TABLET PO SCH (08:05)
[2021-01-11] MEDS: busPIRone 5 MG TABLET PO SCH ×2 (08:05→20:13)
[2021-01-11] MEDS: PREGABALIN 100 MG CAPSULE PO SCH ×3 (08:05→20:13)
[2021-01-11] MEDS: METOPROLOL TARTRATE 25 MG TABLET PO SCH ×2 (08:05→20:12)
[2021-01-11] MEDS: PIPERACILLIN/TAZOBACTAM 3,375 MG in SODIUM CHLORIDE 0.9% 100 ML IV SCH (08:06)
[2021-01-11] MEDS ORDERED: DILTIAZEM CD 120 MG CAPSULE PO SCH (09:00)
[2021-01-11] MEDS: DILTIAZEM 60 MG TABLET PO SCH ×4 (09:29→20:12)
[2021-01-12] MEDS: methylPREDNISolone SOD SUC 40 MG/1 ML VIAL IV SCH ×4 (00:01→18:39)
[2021-01-12] MEDS: ALBUTEROL/IPRATROPIUM 3 ML NEB RESP TX SCH ×4 (00:37→18:21)
[2021-01-12 04:18] LABS: Basophils % 0.1 % (0.0-0.8); Hematocrit 26.7 VOL% (42.0-52.0); Hemoglobin 8.2 GM/DL (14.0-18.0); Immature Granulocytes % 0.6 %; Immature Granulocytes Absolute 0.06 #; Lymphocytes # 0.1 10*3/uL (1.4-4.0); Mean Corpuscular HGB Conc 30.7 GM/DL (32-36); Mean Corpuscular Volume 90.5 FL (87-102); Mean Platelet Volume 10.9 FL (9.6-12.0); Monocytes % 2.8 % (1.7-12.7); NRBC # 0.05 10*3/uL; Neutrophils % 95.5 % (38.7-73.9); Platelet Count 244 T/CUMM (130-400); Red Blood Count 2.95 MC/CUMM (3.8-5.5); Red Cell Distribution Width 19.5 % (9.3-17.3); White Blood Count 10.1 T/CUMM (4-12)
[2021-01-12 04:24] LABS: ABG Base Excess 2.8 MMOL/L (-2.5-2.5); ABG HCO3 26.9 MMOL/L (20-26); ABG Oxygen Saturation 95.9 % (95-100); ABG PCO2 40.9 MM HG (35-48); ABG PH 7.432 (7.35-7.45); ABG PO2 80.8 MM HG (80-95); ABG TCO2 25.4 MMOL/L (23-27); Allen Test Positive; Pt O2 Delivery Device BIPAP
[2021-01-12 04:38] LABS: Band Neutrophils 1 % (0-10); Lymphocytes 4 % (20-55); Platelet Estimate Normal; Segmented Neutrophils 93 % (50-85); Total Cells Counted 100
[2021-01-12 04:39] LABS: Hypochromasia 1+
[2021-01-12 04:44] LABS: Calcium 10.3 MG/DL (8.5-10.1); Osmolality,Calculated 291.8 MOS/KG (273-304); Potassium 4.3 MMOL/L (3.5-5.1)
[2021-01-12] MEDS: ASPIRIN EC 81 MG TABLET PO SCH (09:08)
[2021-01-12] MEDS: SEVELAMER CARBONATE 800 MG TABLET PO SCH ×3 (09:08→16:31)
[2021-01-12] MEDS: DILTIAZEM 60 MG TABLET PO SCH ×4 (09:08→20:33)
[2021-01-12] MEDS: PREGABALIN 100 MG CAPSULE PO SCH ×3 (09:09→20:33)
[2021-01-12] MEDS: busPIRone 5 MG TABLET PO SCH ×2 (09:09→20:33)
[2021-01-12] MEDS: PANTOPRAZOLE 40 MG VIAL IV SCH (09:09)
[2021-01-12] MEDS: APIXABAN 5 MG TABLET PO SCH ×2 (09:09→20:33)
[2021-01-12] MEDS: METOPROLOL TARTRATE 25 MG TABLET PO SCH ×2 (09:09→20:33)
[2021-01-12] MEDS: MULTIVITAMIN (BEROCCA) TABLET PO SCH (09:09)
[2021-01-12] MEDS: SKIN HEALING OINT (AQUAPHOR) 50 GM TUBE TOP SCH ×2 (09:56→20:33)
[2021-01-12] MEDS ORDERED: ALBUMIN 25% 25 GM/100 ML VIAL IV ONE (11:10)
[2021-01-12] MEDS ORDERED: ETOMIDATE 20 MG/10 ML VIAL IV ONE (13:24)
[2021-01-12] MEDS ORDERED: SUCCINYLCHOLINE 200 MG/10 ML VIAL ONE (13:24)
[2021-01-12 14:21] LABS: ABG Base Excess 2.8 MMOL/L (-2.5-2.5); ABG HCO3 26.5 MMOL/L (20-26); ABG Oxygen Saturation 74.1 % (95-100); ABG PCO2 59.1 MM HG (35-48); ABG PH 7.316 (7.35-7.45); ABG PO2 47.9 MM HG (80-95); ABG TCO2 27.9 MMOL/L (23-27)
[2021-01-12 14:36] LABS: Osmolality,Calculated 287.1 MOS/KG (273-304); Potassium 3.2 MMOL/L (3.5-5.1)
[2021-01-12 14:40] LABS: ABG Base Excess 2.9 MMOL/L (-2.5-2.5); ABG Oxygen Saturation 99.6 % (95-100); ABG PH 7.402 (7.35-7.45); ABG TCO2 26.2 MMOL/L (23-27)
[2021-01-12] MEDS ORDERED: MIDAZOLAM 100 MG in SODIUM CHLORIDE 0.9% 80 ML IV PRN (14:50)
[2021-01-12] MEDS ORDERED: NOREPINEPHRINE 8 MG in SODIUM CHLORIDE 0.9% 242 ML IV PRN (14:52)
[2021-01-12] MEDS ORDERED: NOREPINEPHRINE 4 MG/4 ML VIAL IV ONE (14:53)
[2021-01-12 15:14] LABS: INR 1.5; PT Patient Result 16.2 SECS (9.8-11.9)
[2021-01-12] MEDS ORDERED: SODIUM CHLORIDE 0.9% 1,000 ML IV PRN ×2 (15:21→17:46)
[2021-01-12] MEDS ORDERED: VANCOMYCIN INJ 1,000 MG in SODIUM CHLORIDE 0.9% 250 ML IV SCH (15:30)
[2021-01-12 15:32] LABS: Basophils % 0.2 % (0.0-0.8); Hematocrit 22.4 VOL% (42.0-52.0); Immature Granulocytes % 0.4 %; Immature Granulocytes Absolute 0.04 #; Lymphocytes # 0.1 10*3/uL (1.4-4.0); Lymphocytes % 0.9 % (21.2-54.2); Mean Corpuscular HGB Conc 30.8 GM/DL (32-36); Mean Corpuscular Volume 91.1 FL (87-102); Mean Platelet Volume 10.7 FL (9.6-12.0); Monocytes % 1.9 % (1.7-12.7); NRBC # 0.04 10*3/uL; Neutrophils % 96.6 % (38.7-73.9); Platelet Count 192 T/CUMM (130-400); Red Blood Count 2.46 MC/CUMM (3.8-5.5); Red Cell Distribution Width 19.7 % (9.3-17.3); White Blood Count 11.1 T/CUMM (4-12)
[2021-01-12 15:33] LABS: Hemoglobin 6.9 GM/DL (14.0-18.0)
[2021-01-12 15:50] LABS: Band Neutrophils 6 % (0-10); Eosinophils 1 % (0-10); Lymphocytes 2 % (20-55); Segmented Neutrophils 90 % (50-85); Total Cells Counted 100
[2021-01-12 15:51] LABS: Anisocytosis 1+; Dohle Bodies 2+; Macrocytosis 1+; Microcytosis 1+; Platelet Estimate Normal; Toxic Granulation 2+
[2021-01-12 15:52] LABS: Hypochromasia Slight; Polychromasia Slight
[2021-01-12 16:01] LABS: Albumin 2.6 G/DL (3.4-5.0); Bilirubin,Total 1.1 MG/DL (0.2-1.0); Calcium 8.1 MG/DL (8.5-10.1); Potassium 4.7 MMOL/L (3.5-5.1)
[2021-01-12] MEDS: PIPERACILLIN/TAZOBACTAM 3,375 MG in SODIUM CHLORIDE 0.9% 100 ML IV SCH (16:29)
[2021-01-12] MEDS ORDERED: VANCOMYCIN INJ 1,750 MG in SODIUM CHLORIDE 0.9% 500 ML IV ONE (16:30)
[2021-01-12 17:05] LABS: Albumin 2.4 G/DL (3.4-5.0); Bilirubin,Direct 0.4 MG/DL (0.0-0.20); Bilirubin,Indirect 0.6 MG/DL (0.0-1.0)
[2021-01-13] MEDS: PIPERACILLIN/TAZOBACTAM 3,375 MG in SODIUM CHLORIDE 0.9% 100 ML IV SCH ×2 (00:15→09:00)
[2021-01-13] MEDS: methylPREDNISolone SOD SUC 40 MG/1 ML VIAL IV SCH ×2 (00:24→09:15)
[2021-01-13] MEDS: ALBUTEROL/IPRATROPIUM 3 ML NEB RESP TX SCH ×3 (00:46→12:58)
[2021-01-13] MEDS ORDERED: NOREPINEPHRINE 8 MG in SODIUM CHLORIDE 0.9% 242 ML IV PRN (05:30)
[2021-01-13 05:58] VITALS: BP 112/56
[2021-01-13 07:22] LABS: ABG Base Excess 1.9 MMOL/L (-2.5-2.5); ABG HCO3 26.1 MMOL/L (20-26); ABG Oxygen Saturation 99.3 % (95-100); ABG PCO2 35.6 MM HG (35-48); ABG PH 7.462 (7.35-7.45); ABG TCO2 23.1 MMOL/L (23-27); Pt O2 Delivery Device Ventilator
[2021-01-13 07:49] LABS: Basophils % 0.1 % (0.0-0.8); Hematocrit 30.4 VOL% (42.0-52.0); Hemoglobin 9.8 GM/DL (14.0-18.0); Immature Granulocytes % 0.7 %; Immature Granulocytes Absolute 0.09 #; Lymphocytes # 0.1 10*3/uL (1.4-4.0); Lymphocytes % 0.8 % (21.2-54.2); Mean Corpuscular HGB Conc 32.2 GM/DL (32-36); Mean Corpuscular Volume 88.4 FL (87-102); NRBC # 0.04 10*3/uL; Neutrophils % 97.4 % (38.7-73.9); Platelet Count 230 T/CUMM (130-400); Red Blood Count 3.44 MC/CUMM (3.8-5.5); Red Cell Distribution Width 19.6 % (9.3-17.3); White Blood Count 13.4 T/CUMM (4-12)
[2021-01-13] MEDS ORDERED: methylPREDNISolone SOD SUC 40 MG/1 ML VIAL IV SCH (08:00)
[2021-01-13 08:06] LABS: Albumin 2.2 G/DL (3.4-5.0); Bilirubin,Total 1.2 MG/DL (0.2-1.0); Calcium 10.6 MG/DL (8.5-10.1); Osmolality,Calculated 280.1 MOS/KG (273-304); Potassium 4.2 MMOL/L (3.5-5.1); Total Protein 4.9 G/DL (6.4-8.2)
[2021-01-13 08:08] LABS: Band Neutrophils 7 % (0-10); Hypochromasia 1+; Lymphocytes 1 % (20-55); Microcytosis 1+; Platelet Estimate Adequate; Segmented Neutrophils 92 % (50-85); Total Cells Counted 100
[2021-01-13] MEDS ORDERED: ASPIRIN CHEW 81 MG TABLET PO SCH (09:00)
[2021-01-13] MEDS: SEVELAMER CARBONATE 800 MG TABLET PO SCH (09:00)
[2021-01-13] MEDS: SKIN HEALING OINT (AQUAPHOR) 50 GM TUBE TOP SCH (09:00)
[2021-01-13] MEDS: PANTOPRAZOLE 40 MG VIAL IV SCH (09:02)
[2021-01-13] MEDS: APIXABAN 5 MG TABLET PO SCH (09:02)
[2021-01-13] MEDS: METOPROLOL TARTRATE 25 MG TABLET PO SCH (09:02)
[2021-01-13] MEDS: MULTIVITAMIN (BEROCCA) TABLET PO SCH (09:02)
[2021-01-13] MEDS: busPIRone 5 MG TABLET PO SCH (09:02)
[2021-01-13] MEDS: PREGABALIN 100 MG CAPSULE PO SCH (09:02)
[2021-01-13] MEDS: DILTIAZEM 60 MG TABLET PO SCH (09:02)
[2021-01-13] MEDS: MORPHINE 4 MG/1 ML VIAL IV PRN ×5 (11:20→13:40)
[2021-01-13] MEDS: LORazepam 2 MG/1 ML VIAL IV PRN ×5 (11:25→13:50)
[2021-01-13] MEDS ORDERED: VANCOMYCIN INJ 500 MG in SODIUM CHLORIDE 0.9% 100 ML IV PRN (16:34)
== END 2021-01-13 13:55 | disposition expired | DRG 347 ==
LOC: N.ED 17:02 → N.EDINP 21:13 → N.ICU 22:57 → N.TELES 01-08 16:23 → N.CC 01-09 05:37
PROVIDERS: ADMIT Student in an Organized Health Care Education/Training Program; ATTEND Student in an Organized Health Care Education/Training Program